=== PATIENT | male | born 1955 | race Caucasian/White ===

== ENCOUNTER 2024-07-16 11:39 | Outpatient (CLI) | payer MEDICARE, OTHER ==
[2024-07-16] MEDS ORDERED: Iopamidol 370 76% 100 ML VIAL ONE (14:50)
== END 2024-07-16 11:40 | disposition home or self-care (01) ==
LOC: CT 11:39
PROVIDERS: ATTEND Internal Medicine
DX: Z12.11 Encounter for screening for malignant neoplasm of colon (principal); K42.9 Umbilical hernia without obstruction or gangrene
CPT/HCPCS: 36415; 74177; 82565; Q9967